=== PATIENT | female | born 1950 | race Two or more races ===

== ENCOUNTER 2021-09-18 11:06 | Outpatient (CLI) | payer OTHER | END 2021-09-18 11:25 | disposition home or self-care (01) | LOC: SONOGRAMA 11:06 | PROVIDERS: ATTEND Pathology Anatomic Pathology & Clinical Pathology | DX: E04.1 Nontoxic single thyroid nodule (principal) ==

== ENCOUNTER 2025-06-10 09:29 | Outpatient (CLI) | payer OTHER | END 2025-06-10 09:30 | disposition home or self-care (01) | LOC: SONOGRAMA 09:29 | PROVIDERS: ATTEND Pathology Anatomic Pathology & Clinical Pathology | DX: D34 Benign neoplasm of thyroid gland (principal); E07.89 Other specified disorders of thyroid; E04.1 Nontoxic single thyroid nodule ==